=== PATIENT | male | born 1950 | race Caucasian/White ===

== ENCOUNTER 2017-06-24 08:50 | Outpatient (CLI) | payer MEDICARE, OTHER ==
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
== END 2017-06-24 08:52 ==
LOC: RHEU 08:50
PROVIDERS: ATTEND Internal Medicine
DX: M19.042 Primary osteoarthritis, left hand (principal); M19.041 Primary osteoarthritis, right hand
CPT/HCPCS: 99214; G0463

== ENCOUNTER 2017-06-27 08:27 | Outpatient (CLI) | payer MEDICARE, OTHER ==
[2017-06-27 09:10] LABS: EOSINOPHILS % 2.7 % (0.0-6.8); MEAN CORPUSCULAR HEMOGLOBIN 30.6 pg (28.0-34.0); MEAN CORPUSCULAR VOLUME 88.6 fl (80.0-100.0); MONOCYTES % 8.2 % (0.0-11.0); NEUTROPHILS # 3.1 # k/uL (1.4-7.7)
--- NOTE | 2017-06-27 13:59 | Diagnostic Imaging Report ---
DARRICK ENGLISH [facility] [id number] [facility] [address] [place] [address]. [id number] Report Submission Date: Jun 27, 2017 9:12:31 AM MOLDING LINE OPERATOR Patient Study Name: HENNY ALVAREZ Date: Jun 27, 2017 8:44:55 AM MOLDING LINE OPERATOR Modality Type: CR Gender: M Description: UPPER EXTREMITY : 46 Institution: [facility] Physician: DARRICK ENGLISH 3 views each of both hands History: PATIENT STATES PAIN AND SWELLING IN KNUCKLES No comparison studies Right hand: Degenerative changes are noted at carpal joints and the DIP joints with joint space narrowing. No evidence of acute fracture or dislocation, no periosteal reaction. Left hand: No evidence of acute fracture or dislocation. Mild narrowing of the interphalangeal joint spaces Impression: 1. No periosteal reaction. No evidence of acute fracture dislocation 2. Narrowing of the interphalangeal and metacarpo- phalangeal joint spaces Electronically signed on Jun 27, 2017 9:12:31 AM MOLDING LINE OPERATOR by: Thania MUNIZ
[2017-06-27 15:16] LABS: eGFR (African) > 60; eGFR (Non-African) > 60
== END 2017-06-27 08:30 ==
LOC: LAB 08:27
PROVIDERS: ATTEND Internal Medicine
DX: M13.0 Polyarthritis, unspecified (principal); Z79.899 Other long term (current) drug therapy
CPT/HCPCS: 36415; 80053; 84550; 85025; 85651; 86038; 86140; 86200; 86431

== ENCOUNTER 2017-07-29 09:40 | Outpatient (CLI) | payer MEDICARE, OTHER ==
--- NOTE | 2017-08-01 08:22 | OP Clinic Progress Note ---
REASON FOR VISIT: Gianni Alvarez returns for follow up of bilateral hand pain. He tried the tumeric and he notes some improvement. Presently, he is not having any significant pain. He tells me about an old thumb injury a few years ago while using a chainsaw and occasionally that causes him some discomfort at the IP joint. Otherwise, no change in past medical or surgical history. ALLERGIES: He has no known drug allergies. SOCIAL HISTORY: Unchanged. Retired [place] . He quit smoking 30 years ago. REVIEW OF SYSTEMS: No new medical problems. No fevers, chills, or sweats. No rashes. PHYSICAL EXAMINATION: GENERAL: He looks well. VITAL SIGNS: Height: 6 feet 1 inch. Weight: 200. T: 96, R: 20, heart rate 50, BP: 138/70. HEENT: Grossly unremarkable. LUNGS: Clear. HEART: Regular rhythm. ABDOMEN: Soft. PERIPHERAL JOINTS: No synovitis at the DIPs, PIPs, and MCPs, just a little tenderness and hard bony swelling at DIPs and PIPs. DIAGNOSTIC STUDIES: His x-rays and labs were reviewed. His sedimentation rate was 15, rheumatoid factor, CORINNE, and CCP were negative. Hemoglobin 15.6, white count 6.4, platelets normal at 281. AST and ALT were normal. I personally reviewed his x-rays. He has changes of osteoarthritis at the DIPs and PIPs. No erosions. No periosteal reaction of the MCPs or carpal bones. IMPRESSION: Osteoarthritis, doing better. PLAN: 1. I have asked him to [id number] (OTC) antiinflammatories as needed. 2. He will return as needed for a reevaluation if he should develop any worsening symptoms with overt swelling or warmth of his joints. Thank you very much. Best regards, cc: Dr. Masoud MUNIZ
== END 2017-07-29 09:42 ==
LOC: RHEU 09:40
PROVIDERS: ATTEND Internal Medicine
DX: M19.91 Primary osteoarthritis, unspecified site (principal)
CPT/HCPCS: 99213; G0463